=== PATIENT | male | born 1960 | race Caucasian/White ===

== ENCOUNTER 2022-02-14 16:37 | Emergency (ER) | payer OTHER, SELFPAY ==
[2022-02-14 16:40] VITALS: BP 152/71; PULSE 110; RESP 18; TEMP 38.7; O2SAT 95; BMI 27.4
--- NOTE | 2022-02-14 16:56 | CRLHL7_ITS ---
For Patients: As a result of the Century Cures Act, medical imaging exams and procedure reports are released immediately into your electronic medical record. You may view this report before your referring provider. If you have questions, please contact your health care provider. INDICATION: COUGH TECHNIQUE: Chest 1 view. COMPARISON: None. FINDINGS: Cardiovascular and mediastinum: Heart size and vasculature are normal in caliber and appearance. Mediastinum is within normal limits. Lungs and pleural space: Lungs are clear. No sign of infiltrate or mass. No sign of pleural effusion. No pneumothorax. Bones and soft tissues: No significant findings. IMPRESSION: Unremarkable chest. Dictated by: Gary Hollins MD @ 02/14/2022 17:31:17 (Electronically Signed)
--- NOTE | 2022-02-14 16:57 | ED.GENADULT ---
HPI - General Adult General Chief complaint: Cough Stated complaint: Flu Symptoms Time Seen by Provider: 02/14/22 16:44 Source: patient Mode of arrival: ambulatory Limitations: no limitations History of Present Illness HPI narrative: 61-year-old male coming in today complaining of not feeling well for 5 days. Patient has been having fevers, body aches, cough, sore throat, chills. States that he has been in contact with people influenza. Patient is concerned because he has had pneumonia in the past. He denies any neck ache or abdominal pain. He is not short of breath. Patient does have diabetes. Last dose of Advil was about an hour and half ago. Related Data Home Medications Medication Instructions Recorded Confirmed aspirin 81 mg tablet,delayed 81 mg PO QDAY 10/10/21 02/14/22 release Previous Rx's Medication Instructions Recorded glipizide 10 mg tablet 10 mg PO QDAY #90 tabs 09/23/21 metformin 1,000 mg tablet 1,000 mg PO BIDWMEAL #180 tabs 10/10/21 lisinopril 20 mg tablet 20 mg PO QDAY #90 tabs 12/04/21 amoxicillin 500 mg tablet 1,000 mg PO TID 5 days #30 tabs 02/14/22 azithromycin 250 mg tablet See Taper PO .As prescribed #6 tabs 02/14/22 Allergies Allergy/AdvReac Type Severity Reaction Status Date / Time No Known Drug Allergies Allergy Verified 02/14/22 16:49 Review of Systems Status of ROS: Reports: 10 or more systems reviewed and unremarkable except as noted in History and below [facility] Social History Smoking Status: Never smoker Do you use any of these nicotine containing products: None How often do you have a drink containing alcohol: never AUDIT-C Alcohol total score: 0 Non-prescribed substance use: denies use Exam Narrative: Exam Narrative: Well-nourished well-developed patient in no acute distress, appears tired. Alert and oriented. Answers questions appropriately. Mood and affect are appropriate. Thoughts are goal oriented and rational. No tangential or magical thinking noted. Patient speaks in full sentences without needing to catch his breath. HEENT: Normocephalic atraumatic. Pupils are equally round reactive to light. Extraocular muscles are intact. Conjunctivae are moist without any icterus noted. Moist mucous membranes. Posterior pharynx is normal. Neck is soft without any lymphadenopathy or thyromegaly. No masses are appreciated. Cardiovascular: Heart is regular rate and rhythm S1 and S2 are present without any murmurs. Lungs: Clear to auscultation on the left, he does have some mild rales on the right. Abdomen: Soft and nontender nondistended with normal bowel sounds. No guarding or rebound. Extremities: Bilateral lower extremities are without edema. Skin: Well perfused without any obvious rashes. Const: Vital Signs, click to edit/add: Vital Signs - 24 hr 02/14/22 16:40 Temperature 101.6 F H Pulse Rate [Right Pulse Oximeter] 110 H Respiratory Rate 18 Blood Pressure [Ri ght Upper Arm] 152/71 H Pulse Oximetry 95 Oxygen Delivery Me thod Room Air Course Course Hospital Course: CBC consistent with some dehydration. COVID and influenza and RSV negative. Chest x-ray, read by me, without any infiltrates. Vital Signs Vital signs: Initial Vital Signs Temperature 101.6 F H 02/14/22 16:40 Temperature Source Temporal Artery Scan 02/14/22 16:40 Pulse Rate 110 H 02/14/22 16:40 Respiratory Rate 18 02/14/22 16:40 Blood Pressure 152/71 H 02/14/22 16:40 Blood Pressure Mean 98 02/14/22 16:40 Blood Pressure Position Sitting 02/14/22 16:40 Pulse Oximetry 95 02/14/22 16:40 Oxygen Delivery Method 02/14/22 16:40 Vital Signs Temperature 101.6 F H 02/14/22 16:40 Pulse Rate 110 H 02/14/22 16:40 Respiratory Rate 18 02/14/22 16:40 Blood Pressure 152/71 H 02/14/22 16:40 Pulse Oximetry 95 02/14/22 16:40 Oxygen Delivery Method 02/14/22 16:40 Temperature 101.6 F H 02/14/22 16:40 Pulse Rate 110 H 02/14/22 16:40 Respiratory Rate 18 02/14/22 16:40 Blood Pressure 152/71 H 02/14/22 16:40 Pulse Oximetry 95 02/14/22 16:40 Oxygen Delivery Method 02/14/22 16:40 Medical Decision Making MDM Narrative Medical decision making narrative: 61-year-old male with flu-like symptoms, fever, cough-workup was unremarkable. I am concerned this patient has pneumonia given the duration of his symptoms and his abnormal lung exam. Therefore I am going to go ahead and treat him with amoxicillin and azithromycin. Recommend close follow-up with primary care provider early next week. Medical Records Medical records reviewed: Yes I reviewed the patient's medical records Lab Data Lab results reviewed: Yes I reviewed the patient's lab results Labs: Lab Results 02/14/22 02/14/22 Range/Units 16:50 17:06 WBC 8.85 (4.50-11.00) K/uL RBC 4.12 L (4.30-5.90) m/uL Hgb 14.3 (13.5-17.5) gm/dL Hct 39.0 (37.0-53.0) % MCV 95 (80-100) fL MCH 35 H (26-34) pg MCHC 37 H (32-36) gm/dL RDW Coeff of Rizw[place] 11.0 L (11.5-15.5) % Plt Count 179 (140-440) K/uL Neut % (Auto) 85.0 H (42.0-72.0) % Lymph % (Auto) 7.3 L (20-44) % [place] % (Auto) 6.2 (0.0-11.0) % Eos % (Auto) 0.8 (0.0-7.0) % Baso % (Auto) 0.5 (0.0-3.0) % Neut # (Auto) 7.50 H (1.7-7.0) K/uL Lymph # (Auto) 0.60 L (0.90-2.90) K/uL [place] # (Auto) 0.50 (0.00-0.90) K/UL Eos # (Auto) 0.07 (0.00-0.50) K/uL Baso # (Auto) 0.04 (0.00-0.30) K/uL Abs Immat Gran (auto) 0.02 (0.00-0.30) K/uL Imm/Tot Granulo (auto) 0.2 % SARS-CoV-2 (PCR) Negative SARS-CoV-2 (Negative) Influenza Type A (PCR) Negative PCR FLU A (Negative) Influenza Type B (PCR) Negative PCR FLU B (Negative) RSV (PCR) Negative PCR RSV (Negative) Imaging Data Chest x-ray: Attestation: I have reviewed the pertinent imaging results. Radiologist's impression: Chest 2 views. COMPARISON: 02/01/22 FINDINGS: Cardiovascular and mediastinum: Heart size and vasculature are normal in caliber and appearance. Mediastinum is within normal limits. Lungs and pleural spaces: Lungs are clear. No sign of infiltrate or mass. No sign of pleural effusion. No pneumothorax. Bones and soft tissues: No significant findings. IMPRESSION: Unremarkable chest. Discharge Plan Discharge Clinical Impression: Pneumonia Patient Disposition: Home, Self-Care Condition: Stable Additional Instructions: Take all antibiotics as prescribed. Continue using Tylenol or ibuprofen as needed for fever reduction. Recommend close follow-up with your primary care provider early next week. Return to the ER if you feel like you are getting worse instead of better. Prescriptions: New azithromycin 250 mg tablet See Taper PO .As prescribed Qty: 6 0RF Taper: Z-FELICIA 500 mg Q24H for 1 Day and 0 Hour 250 mg Q24H for 4 Days and 0 Hour Rx Instructions: For 250 mg dose pack: take 500 mg today (day 1), then 250 mg for 4 days (days 2-5) amoxicillin 500 mg tablet 1,000 mg PO TID 5 Days Qty: 30 0RF No Action glipizide 10 mg tablet 10 mg PO QDAY Qty: 90 1RF aspirin 81 mg tablet,delayed release (DR/EC) 81 mg PO QDAY Hold Instructions: per pt metformin 1,000 mg tablet 1,000 mg PO BIDWMEAL Qty: 180 3RF lisinopril 20 mg tablet 20 mg PO QDAY Qty: 90 3RF Follow Up/Referrals: Saurabh Delgado MD [Primary Care Provider] - Stand Alone Forms: [employer] Info Instructions
[2022-02-14] MEDS: ACETAMINOPHEN 500 MG TABLET 1000 MG PO (17:09)
[2022-02-14 17:26] LABS: Basophils Absolute Auto 0.04 K/uL (0.00-0.30); Basophils Percent Auto 0.5 % (0.0-3.0); Eosinophils Absolute Auto 0.07 K/uL (0.00-0.50); Eosinophils Percent Auto 0.8 % (0.0-7.0); Hemoglobin* 14.3 gm/dL (13.5-17.5); Immature Granulocytes Abs Auto 0.02 K/uL (0.00-0.30); Immature Granulocytes Pct Auto 0.2 %; Lymphocytes Percent Auto 7.3 % (20-44); Mean Corpuscular HGB Conc 37 gm/dL (32-36); Mean Corpuscular Hemoglobin 35 pg (26-34); Mean Corpuscular Volume 95 fL (80-100); Monocytes Percent Auto 6.2 % (0.0-11.0); Platelet Count* 179 K/uL (140-440); Red Blood Count 4.12 m/uL (4.30-5.90); White Blood Count* 8.85 K/uL (4.50-11.00)
[2022-02-14 17:30] LABS: Slide Review Reflex No
[2022-02-14 18:08] LABS: PCR FLU A Negative PCR FLU A (Negative); PCR FLU B Negative PCR FLU B (Negative); PCR RSV Negative PCR RSV (Negative)
[2022-02-14 18:09] LABS: SARS PCR* Negative SARS-CoV-2 (Negative)
== END 2022-02-14 18:31 | disposition home or self-care (01) ==
PROVIDERS: Emergency Provider Family Medicine; PCP Family Medicine
DX: J18.9 Pneumonia, unspecified organism (principal)
CPT/HCPCS: 36415; 71045; 85025; 87502; 87634; 87635; 99284; A9270

== ENCOUNTER 2022-06-12 08:35 | Outpatient (CLI) | payer OTHER, SELFPAY ==
--- OUTSIDE RECORDS SUMMARY | 2022-06-12 20:32 | XMS_ITS | Continuity of Care Document ---
Author Name Unknown Organization [facility] Address [address] [address] [place] [address] Phone Care Team Providers Care Waterworks Supervisor Name Role Phone Unavailable Unavailable Unavailable Allergies, Adverse Reactions, Alerts Substance Reaction Status Criticality No Known allergies Medications Medication Instructions Dosage Effective Dates (start - stop) Status Comments No Drug Therapy Prescribed Procedures Procedure Date Ugi Endo; W/bx 1/mx Level Iv-surg Path Gross/micro Colonoscopy Flex; W/remov Les- Level Iv-surg Path Gross/micro 07 Advance Directives Directive Yes / No Effective Date File Name No Information Encounters Encounter Description Practice Location Reason(s) For Visit Diagnoses Date Provider Providers Copied on Encounter [facility], [address] [address], [place], [place], [id number], [place] tel:[phone] [facility] [place] No Information 1 No Information [facility], [address] [address], [facility] [place], [id number], [place] tel:[phone] [facility] Family Hx Colon Cancer 7 No Information Referring Provider: No Primary. [facility], [address] [address], [place], [place], [id number], [place] tel:[phone] [facility] [place] Familial PolyposisFamily Hx Colon CancerPersonal History Colon Polyps 7 No Information Family History Family Member Type Diagnosis Age At Onset No Information Payers Payer name Insurance type Covered green party ID Authorbebea joselin(s) [facility] [id number] Social History Type Description Quantity Date Captured Comments Sex Male Smoking Status No Information Chief Complaint And Reason For Visit No Information Reason For Referral Reason For Referral No Information Plan Of Treatment Date Type Action Status No Information History Of Present Illness Encounter Date Complaint History Of Prese nt Illness No Information Functional Status Date Functional Assessmen t No Information Medications Administered Medication Instructions Dosage Effective Dates (start - stop) Status Comments No Drug Therapy Prescribed Instructions Date Instruction Additional Infor mation No Information Assessments Type Assessment Date No Information Patient Care Teams Name Effective Dates (start - stop) Status Members No Information
== END 2022-06-12 08:36 | disposition home or self-care (01) ==
PROVIDERS: PCP Family Medicine; Referring Provider Family Medicine; Visit Provider Family Medicine
DX: E13.9 Other specified diabetes mellitus without complications (principal); Z12.5 Encounter for screening for malignant neoplasm of prostate; I10 Essential (primary) hypertension; Z13.6 Encounter for screening for cardiovascular disorders
CPT/HCPCS: 80048; 80061; 84153

== ENCOUNTER 2023-07-10 09:23 | Outpatient (CLI) | payer OTHER, SELFPAY ==
--- OUTSIDE RECORDS SUMMARY | 2023-07-10 09:26 | XMS_ITS | Clinical Summary ---
Author Name Unknown Organization [facility] Address [address] [place] [address] Care Team Providers Care Ice Maker Name Role Phone Unassigned, Provider Primary Care Provider Unava ilable Source Comments You are receiving this document as you are listed as the primary care provider,follow-up provider, or the patient has been referred to you for consultation.This is in compliance with the Medicare andSt[facility] Cent[facility]aid EHR Incentive Program,which states Providers who transition their patient to another setting of careor provider of care or refers their patient to another provider of care shouldprovide summary care record for each transition of care or referral. [facility] Allergies No known active allergies Medications Medication Sig Dispensed Refills Start Date End Date Status glipiZIDE (GLUCOTROL) 10 MG tablet Take 1 Tablet (10 mg) by mouth two times a day. 04/02/2023 Active lisinopril (ZESTRIL) 20 MG tablet Take 1 Tablet (20 mg) by mouth daily. 04/02/2023 Active metFORMIN (GLUCOPHAGE) 1000 MG tablet Take 1 Tablet (1,000 mg) by mouth two times a day. 04/02/2023 Active minoxidil (LONITEN) 2.5 MG tablet Take 1/2 tablet daily 90 Tablet 3 04/07/2023 Active Social History Tobacco Use Types Packs/Day Years Used Date Smoking Tobacco: Never Assessed Sex and Gender Information Value Date Recorded Sex Assigned at Not on file Gender Identity Not on file Sexual Orientation Not on file Plan of Treatment Health Maintenance Due Date Last Done Comments Colon Cancer Screening Plan Due 1960 Hep C Screening (Preventive Services) 1960 PSA Screening Discussion 1959 HIV Screening (Preventive Services) 1975 Adult Preventive Visit 06/16/1977 Cholesterol 06/16/1994 COVID-19 Vaccine (4 - 3-2 4 season) 2022 04/16/2021, 06/22/2020, 05/25/2020 Influenza (#1) 2022 11/17/2019, 01/05/2017 DTaP/Tdap/Td (2 - Tdap) 05/05/2024 05/05/2014 Pneumococcal Aged Out 10/01/2015 No longer eligi ble based on patient's age to complete this topic Zoster/Shingles Completed 02/06/2020, 11/17/2019 HepA Aged Out No longer eligi ble based on patient's age to complete this topic HepB Aged Out No longer eligi ble based on patient's age to complete this topic Hib Aged Out No longer eligi ble based on patient's age to complete this topic IPV (Polio) Aged Out No longer eligi ble based on patient's age to complete this topic MCV4 Aged Out No longer eligi ble based on patient's age to complete this topic Care Teams Ice Maker Relationship Specialty Start Date End Date Unassigned, Provider [address] [place] [address] PCP - General 08/11/02
--- OUTSIDE RECORDS SUMMARY | 2023-07-10 09:26 | XMS_ITS | Encounter Summary ---
Author Name Unknown Organization [facility] Address [address] [place] [address] Care Team Providers Care Real Estate Associate Name Role Phone Unassigned, Provider Primary Care Provider Unava ilable Reason for Referral * (Routine) - New Request Specialty Diagnoses / Procedures Referred By Link bonilla Referred To Contact Diagnoses Actinic keratosis Procedures SC DESTRUC BENIGN/PREMAL,2-14 LESIONS Farnaz Hussein MD [address] [place] [address] Referral ID Status Reason Start Date Expiration Date V isits Requested Visits Authorized [id number] New Request 04/07/2023 07/06/2024 1 1 IFIED DENTAL ASSISTANT Reason for Visit * Reason Comments Spot, Skin Encounter Details Date Type Department Care Team (Late st Contact Info) Description 04/07/2023 8:30 AM CERTIFIED DENTAL ASSISTANT Office Visit [place] [address] [place] [address] [id number] Farnaz Hussein MD [address] [place], [place] [id number] Actinic keratosis (Primary Dx) Social History Tobacco Use Types Packs/Day Years Used Date Smoking Tobacco: Never Assessed Sex and Gender Information Value Date Recorded Sex Assigned at Not on file Gender Identity Not on file Sexual Orientation Not on file documented as of this encounter Progress Notes * Farnaz Hussein MD - 04/07/2023 8:30 AM CST Problem List None Chief Complaint Patient presents with Spot, Skin History of Present Illness: Patience Cook is a 62 y.o. male who presents to clinic today for Spot, Skin Patient is new to [facility]. Today, the patient has a couple spots of concern. He says there is a dark spot on left cheek. He adds there are a few bumps on his cheek have been there for a couple months. He states he shaves them off and they will come back. He denies them growing. He recently began losing hair on his scalp and started using Rogaine. He is otherwise well with no other acute skin concerns. Past Medical History: No personal history of skin cancer. Family History: No family history of skin cancer. Social History: Grew up in [place]. He would hamilton as a kid. He did not get very sunburned until he was in the service in [place]. Has been bad about wearing sunscreen. Started wearing it recently. Physical Examination: General: Well-appearing male, in no distress, alert and oriented. Skin: Focused examination of the face. Please see below for additional problem associated details of physical exam. Findings, Assessment, and Plan: 1. Likely actinic keratosis vs ISK - Irritated hamilton stuck on appearing papules at the left zygomatic cheek x1 - left central cheek, pink scaly papule x1 Discussed treatment with cryotherapy and the risks involved including pigment change, blistering and scar. Due to symptomatic nature of the lesions, a total of 2 lesions were treated with cryotherapy. 2. 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 Discussed etiology and expectations. Prescribed minoxidil tablets, take 1/2 tablet daily. For Rogaine, reviewed need to continue using this medication to maintain hair growth, risk of skin irritationand to change pillowcase weekly to prevent facial hair growth. Follow up: Return to clinic as scheduled for recheck, sooner for new concerns. Scribe Disclosure: Inna Segovia, am serving as a scribe to document services personally performed by Farnaz Hussein MD at this visit, based upon the provider's statements to me. Entered on 04/07/23 at 8:36 AM. Farnaz Segovia MD, attest that the above named individual is acting in scribe capacity, has observed my performance of the services performed at this visit and has documented them in accordance withmy direction. Entered on 04/07/2023 at 1:56 PM. IFIED DENTAL ASSISTANT documented in this encounter Plan of Treatment Not on file documented as of this encounter Procedures Procedure Name Priority Date/Time Associated Diagnosis Comments CRYOTHERAPY SKIN LESION Routine 04/07/2023 9:57 A M CERTIFIED DENTAL ASSISTANT Actinic keratosis documented in this encounter Results * Cryotherapy, skin lesion (No CPT) (04/07/2023 9:57 AM CERTIFIED DENTAL ASSISTANT) Farnaz Hussein MD DERM PROCEDURE ORDER NARDA EXTERNAL RESULTS documented in this encounter Visit Diagnoses Diagnosis Actinic keratosis- Primary documented in this encounter Care Teams Real Estate Associate Relationship Specialty Start Date End Date Unassigned, Provider [address] [place] [address] PCP - General 08/11/02 documented as of this encounter
--- OUTSIDE RECORDS SUMMARY | 2023-07-10 09:26 | XMS_ITS | Clinical Summary ---
Author Name Unknown Organization [facility] Address [place], [place] [address] Care Team Providers Care Superintendent Custodian Janitor Name Role Phone Clinic, No Pcp Or Primary Care Provider Unavaila ble Allergies No known active allergies Medications Medication Sig Dispensed Refills Start Date End Date Status IBUPROFEN 200 MG TAB take 1 tablet (200mg) by oral route every 6 hours as needed with food 0 04/14/2006 Active metFORMIN (GLUCOPHAGE XR) 500 mg Extended-Release tablet 08/24/2015 Active Social History Tobacco Use Types Packs/Day Years Used Date Smoking Tobacco: Former Cigarettes Q uit: 03/09/1999 Smokeless Tobacco: Never Alcohol Use Standard Drinks/Week Comments Yes 6 (1 standard drink = 0.6 oz pur e alcohol) 12 pack beer weekly Sex and Gender Information Value Date Recorded Sex Assigned at Not on file Gender Identity Not on file Sexual Orientation Not on file Obstetrics History Last Filed Vital Signs Vital Sign Reading Time Taken Comments Blood Pressure 151/90 09/11/2015 9:15 AM CDT Pulse 90 09/11/2015 9:15 AM CDT Temperature 36.9 ??C (98.4 ??F) 09/11/2015 9:15 AM CD T Respiratory Rate 14 09/11/2015 9:15 AM CDT Oxygen Saturation 98% 09/11/2015 9:15 AM CDT Inhaled Oxygen Concentration - - Weight 83.9 kg (185 lb) 09/11/2015 9:15 AM CDT Height 172.7 cm (5' 8) 09/11/2015 9:15 AM CDT Body Mass Index 28.13 09/11/2015 9:15 AM CDT Plan of Treatment Health Maintenance Due Date Last Done Comments Tdap 06/16/1970 Depression screening for age 12+ 1971 HIV for age 15-65 06/16/1974 Hepatitis C screening for ag e 18-79 06/16/1977 Tetanus booster 1979 Colonoscopy through age 75 06/16/2004 Lipids for age 45-75 06/16/2004 Zoster (shingles) series for age 50+ (1 of 2) 06/16/2009 BMI (ht and wt on same day) for age 18+ 09/10/2016 09/11/2015 COVID-19 vaccine series (2022-24 season) 2022 Influenza for age 50-64 11/08/2023 Pneumococcal series for age 6-64 Aged Out No longer eligible based on patient's age to complete this topic Care Teams Superintendent Custodian Janitor Relationship Specialty Start Date End Date Clinic, No Pcp Or . PCP - General 09/11/15
== END 2023-07-10 09:24 | disposition home or self-care (01) ==
PROVIDERS: PCP Family Medicine; Visit Provider Family Medicine
DX: I10 Essential (primary) hypertension (principal); Z13.220 Encounter for screening for lipoid disorders
CPT/HCPCS: 80048; 80061

== ENCOUNTER 2023-11-23 08:38 | Outpatient (CLI) | payer OTHER, SELFPAY ==
--- NOTE | 2023-11-23 10:29 | W.ANESCHARGE ---
Anesthesia Charges Start Date/Time Anesthesia Start Date: 11/23/23 Anesthesia Start Time: 09:18 Stop Date/Time Anesthesia Stop Date: 11/23/23 Anesthesia Stop Time: 10:28
== END 2023-11-23 08:39 | disposition home or self-care (01) ==
PROVIDERS: PCP Family Medicine; Visit Provider Surgery
DX: Z86.010 Personal history of colon polyps (principal); D12.0 Benign neoplasm of cecum; D12.2 Benign neoplasm of ascending colon; D12.3 Benign neoplasm of transverse colon; D12.8 Benign neoplasm of rectum; D49.0 Neoplasm of unspecified behavior of digestive system
CPT/HCPCS: 00811; 45380; 45381; 45385; 88305; 88341; 88342; J2704

== ENCOUNTER 2023-11-27 15:57 | Outpatient (CLI) | payer OTHER, SELFPAY ==
--- OUTSIDE RECORDS SUMMARY | 2023-11-27 16:00 | XMS_ITS | Continuity of Care Document ---
Author Organization [facility] Address [address] [address] [place] [address] Phone Care Team Providers Care Behavioral Health Therapist Name Role Phone Unavailable Unavailable Unavailable Allergies, [...] Diagnoses Date Provider Providers Copied on Encounter [facility] [employer] [facility], [address] [address], [place], [place], [id number], [place] tel:[phone] [facility] No Information 1 No Information [facility] [facility], [address] [address], [place], [place], [id number], [place] tel:[phone] [facility] Family Hx Colon Cancer 7 No Information Referring Provider: No Primary. [facility] [employer] [facility], [address] [address], [facility] [place], [address], [place] tel:[phone] [facility] Familial PolyposisFamily Hx Colon CancerPersonal History Colon Polyps 7 No Information Family History Family Member Type Diagnosis Age At Onset No Information Payers Payer name Insurance type Covered libertarian ID Authoriza joselin(s) [facility] [id number] Social History Type Description Quantity Date Captured Comments Sex Male Smoking Status No Information Chief Complaint And Reason For Visit No Information Reason For Referral Reason For Referral No Information History Of Present Illness Encounter [...]
--- OUTSIDE RECORDS SUMMARY | 2023-11-27 16:00 | XMS_ITS | Clinical Summary ---
Author Organization [facility] Address [address] [place] [address] Care Team Providers Care Quality Assurance Supervisor Chassis Name Role Phone Unassigned, Provider Primary Care Provider Unava ilable Source Comments You are receiving this document as you are listed as the primary care provider,follow-up provider, or the patient has been referred to you for consultation.This is in compliance with the Medicare and[facility] EHR Incentive Program,which states Providers who transition their patient to another setting of careor provider of care or refers their patient to another provider of care shouldprovide summary care record for each transition of care or referral. [facility] Allergies No known active allergies Medications Medication [...] 06/16/1977 Cholesterol 06/16/1994 COVID-19 Vaccine (4 - 2023-2 5 season) 2023 04/16/2021, 06/22/2020, 05/25/2020 Influenza (#1) 2023 11/17/2019, 01/05/2017 DTaP/Tdap/Td (2 - Tdap) 05/05/2024 05/05/2014 RSV (1 - 1-dose 75+ series) 06/16/2034 Pneumococcal Aged Out 10/01/2015 No longer eligi [...] age to complete this topic Care Teams Quality Assurance Supervisor Chassis Relationship Specialty Start Date End Date Unassigned, Provider [address] [place] [address] PCP - General 08/11/02
--- OUTSIDE RECORDS SUMMARY | 2023-11-27 16:00 | XMS_ITS | Clinical Summary ---
Author Organization [facility] Address [place], [place] [address] Care Team Providers Care Cut Out Stitcher Name Role Phone Clinic, No Pcp Or [...] 09/10/2016 09/11/2015 COVID-19 vaccine series (2022-24 season) 2023 Influenza for age 50-64 11/08/2023 Pneumococcal series for age 6-64 Aged Out No longer eligible based on patient's age to complete this topic Care Teams Cut Out Stitcher Relationship Specialty Start Date End Date Clinic, No Pcp Or . PCP - General 09/11/15
[2023-11-27 16:25] LABS: Estimated Glomerular Filt Rate 84 ml/min
--- NOTE | 2023-11-27 16:45 | CRLHL7_ITS ---
For Patients: As a result of the 21st Century Cures Act, medical imaging exams and procedure reports are released immediately into your electronic medical record. You may view this report before your referring provider. If you have questions, please contact your health care provider. INDICATION: Colon cancer workup. COMPARISON: None. TECHNIQUE: CT chest, abdomen, and pelvis with contrast. Multiplanar axial, coronal, and sagittal reformats are included. MIP images to improve detection of pulmonary nodules are included. Intravenous contrast: 96 mL Isovue 370. FINDINGS: CHEST Airway: Normal tracheobronchial tree. Lungs: There is a 4 millimeter flat triangular nodule in the right lower lobe on series 3, image 46. 5 millimeter oval nodule left lower lobe on series 3, image 52. 2 millimeter nodule in the lingula on series 3, image 53. There are several small triangular or oval fissural nodules consistent with fissural lymph nodes. No consolidations. Minimal paraseptal emphysema at the right lung apex. Pleura: No pleural effusion. No pneumothorax. Lymph nodes: No thoracic adenopathy. Mediastinum: No pneumomediastinum. No mass. Heart and great vessels: No pericardial effusion. Normal cardiac chamber size. Heavy calcified coronary atherosclerotic plaques. No aortic aneurysm. Normal caliber main pulmonary artery. Chest wall: Normal. No masses. ABDOMEN AND PELVIS Liver: Mild diffuse hepatic steatosis. No focal liver lesions seen. Patent hepatic vasculature. Gallbladder and bile ducts: Normal gallbladder. No bile duct dilation. Pancreas: Normal. Spleen: Small splenule at the splenic hilum. Normal spleen size and enhancement. Adrenal glands: Normal. Kidneys: Normal parenchyma. 1 centimeter cyst in the left lower pole. No solid renal mass. No calculi. No urinary tract dilation. Urinary bladder: Normal. Pelvis: No cyst or mass. Vessels: Atherosclerotic vascular calcifications, [id number]. No aortic aneurysm. Mesenteric and portal veins are widely patent. Bowel: No dilated or inflamed bowel. Biopsy clip in the cecum. No discrete mass is visible on CT. This is typical of a small or resected polyps or masses. Normal appendix, located under the right hepatic lobe in the right upper quadrant.. Moderate stool burden. Lymph nodes: No adenopathy. Peritoneum: No ascites. Abdominal wall: No hernia. BONES: No fractures. No focal bone lesions. IMPRESSION: 1. Biopsy clips in the cecum without a mass visible by CT. No perforation or collection. 2. There are a few scattered small pulmonary nodules. Low suspicion for metastatic disease based on morphology and distribution. 3. No metastatic disease seen in the abdomen or pelvis. 4. Mild diffuse hepatic steatosis. 5. Heavy calcified coronary atherosclerotic plaques, out of proportion to the degree of atherosclerosis elsewhere. Please note that all CT scans at this facility use dose modulation, iterative reconstruction, and/or weight-based dosing when appropriate to reduce radiation dose to as low as reasonably achievable. Dictated by Amanda Gary MD @ 11/30/2023 11:24:55 AM (Electronically Signed)
== END 2023-11-27 15:58 | disposition home or self-care (01) ==
LOC: CT 15:58
PROVIDERS: PCP Family Medicine; Visit Provider Surgery
DX: K63.89 Other specified diseases of intestine (principal); R91.8 Other nonspecific abnormal finding of lung field; K76.0 Fatty (change of) liver, not elsewhere classified; I25.10 Atherosclerotic heart disease of native coronary artery without angina pectoris
CPT/HCPCS: 36415; 71260; 74177; 82565; Q9967

== ENCOUNTER 2024-12-16 11:09 | Outpatient (CLI) | payer OTHER, SELFPAY | END 2024-12-16 11:10 | disposition home or self-care (01) | PROVIDERS: PCP Family Medicine; Visit Provider Family Medicine | DX: Z13.6 Encounter for screening for cardiovascular disorders (principal); Z12.5 Encounter for screening for malignant neoplasm of prostate; I10 Essential (primary) hypertension | CPT/HCPCS: 80048; 80061; G0103 ==